=== PATIENT | female | born 2000 | race African-American/Black ===

== ENCOUNTER 2020-07-20 11:52 | Emergency (ER) | payer MEDICAID ==
[~2020-07-20] VITALS: Ht 162.6 cm; Wt 66.0 kg
[2020-07-20 12:07] VITALS: BP 109/62
[2020-07-20 12:47] LABS: BASOPHILS % 0.3 % (0.0-2.0); EOSINOPHILS % 0.5 % (0.0-5.0); HEMATOCRIT. 36.1 % (36.0-48.0); HEMOGLOBIN. 12.1 g/dL (12.0-16.0); MEAN CORPUSCULAR HEMOGLOBIN 30.9 pg (28.0-32.0); MEAN CORPUSCULAR VOLUME 91.9 fL (81.0-99.0); MEAN PLATELET VOLUME 8.1 fl (7.4-10.4); MONOCYTES % 4.9 % (2.0-8.0); NEUTROPHILS % 73.3 % (40.0-76.0); PLATELET 236 x1000/uL (130-400); RED BLOOD CELL COUNT 3.93 mill/uL (4.2-5.4); RED CELL DISTRIBUTION WIDTH 15.8 % (11.6-14.6)
[2020-07-20 13:08] LABS: CLARITY URINE CLOUDY (CLEAR); COLOR URINE YELLOW (YELLOW); KETONES URINE 2+ (NEGATIVE); LEUKOCYTE ESTERASE URINE 1+ (NEGATIVE); NITRITE URINE NEGATIVE (NEGATIVE); OCCULT BLOOD URINE NEGATIVE (NEGATIVE); PH URINE 7.5 (4.5-8.0); PROTEIN URINE NEGATIVE (NEGATIVE); SPECIFIC GRAVITY URINE 1.024 (1.005-1.030)
[2020-07-20] MEDS ORDERED: CEPH-569 PO (16:33)
== END 2020-07-20 17:55 | disposition left against medical advice (07) ==
LOC: ER 11:52
DX: O26.892 Other specified pregnancy related conditions, second trimester (principal); R82.71 Bacteriuria; J45.909 Unspecified asthma, uncomplicated; Z3A.16 16 weeks gestation of pregnancy
CPT/HCPCS: 36415; 81003; 81025; 84702; 85025; 86900; 93005; 99284

== ENCOUNTER 2024-08-25 21:57 | Emergency (ER) | payer MEDICAID ==
[~2024-08-25] VITALS: Ht 172.7 cm; Wt 77.6 kg
[~2024-08-25 21:57] MED LIST: CEPH-569 PO
[2024-08-25 22:01] VITALS: BP 117/87; RESP 18; TEMP 37; O2SAT 100
[2024-08-25 22:03] VITALS: PULSE 85; O2SAT 99
[2024-08-25] MEDS ORDERED: KETOROLAC 30MG/ML VIAL IM ONE (23:00)
== END 2024-08-25 23:36 | disposition left against medical advice (07) ==
LOC: ER 21:57
DX: R51.9 Headache, unspecified (principal); J45.909 Unspecified asthma, uncomplicated; Z90.710 Acquired absence of both cervix and uterus; Z88.5 Allergy status to narcotic agent; Z88.8 Allergy status to other drugs, medicaments and biological substances
CPT/HCPCS: 99281

== ENCOUNTER 2024-10-07 03:12 | Emergency (ER) | payer MEDICAID ==
[~2024-10-07] VITALS: Ht 170.2 cm; Wt 64.0 kg
[2024-10-07 03:24] VITALS: BP 128/76; PULSE 88; RESP 18; TEMP 36.9; O2SAT 98
[2024-10-07] MEDS: ACETAMINOPHEN 325MG TABLET PO ONE (05:46)
[2024-10-07 05:47] VITALS: TEMP 98.4
[2024-10-07] MEDS: ACETAMINOPHEN 325MG TABLET PO NR (05:47)
== END 2024-10-07 05:49 | disposition home or self-care (01) ==
LOC: ER 03:12
DX: G89.18 Other acute postprocedural pain (principal); J45.909 Unspecified asthma, uncomplicated; Z88.5 Allergy status to narcotic agent; Z90.710 Acquired absence of both cervix and uterus; Z91.148 Patient's other noncompliance with medication regimen for other reason
CPT/HCPCS: 99283